=== PATIENT | male | born 1980 | race Hispanic/Latino ===

== ENCOUNTER 2017-08-15 19:41 | Emergency (ER) | payer SELFPAY ==
[2017-08-15] MEDS ORDERED: Ketorolac Tromethamine 30 MG/ML VIAL ONE (20:09)
--- NOTE | 2017-08-15 22:03 | RAD ---
CHEST ONE VIEW: RIGHT RIBS TWO VIEWS: HISTORY: Right rib pain. COMPARISON: None. FINDINGS: CHEST: Normal cardiac silhouette. Pulmonary vessels and hilum are normal. Costophrenic angles are clear. No consolidation or mass. No pneumothorax or osseous benign. RIBS: No fracture. No cortical irregularity. No periosteal reaction. IMPRESSION: 1. No acute cardiopulmonary process. 2. No evidence of right rib fracture. POS: [facility]
== END 2017-08-15 20:57 | disposition home or self-care (01) ==
LOC: ERS 19:41
DX: S20.211A Contusion of right front wall of thorax, initial encounter (principal); W19.XXXA Unspecified fall, initial encounter
CPT/HCPCS: J1885